=== PATIENT | male | born 1970 | race Caucasian/White ===

== ENCOUNTER 2020-06-08 07:33 | Outpatient (CLI) | payer OTHER ==
[2020-06-08] MEDS ORDERED: Fentanyl 100 MCG/2 ML VIAL ONE (08:19)
[2020-06-08] MEDS ORDERED: Naloxone HCl 0.4 mg/ml Vial ONE (08:20)
[2020-06-08] MEDS ORDERED: Sodium Bicarbonate 2.5 MEQ/5 ML VIAL ONE (08:20)
[2020-06-08] MEDS ORDERED: Lidocaine 1% PF 5 ML VIAL ONE (08:20)
[2020-06-08] MEDS ORDERED: Midazolam HCl 5 mg/5 ml Vial ONE (08:21)
[2020-06-08] MEDS ORDERED: FLU VACC QS2020-21(6MOS UP)/PF 60 MCG/0.5 ML SYRINGE IM ONE (08:45)
[2020-06-08 10:42] VITALS: BP 116/72; TEMP 97.4; BMI 29.5
== END 2020-06-08 10:56 | disposition home or self-care (01) ==
LOC: CSHULT 07:33
PROVIDERS: ATTEND Physician Assistant Medical
DX: R94.5 Abnormal results of liver function studies (principal); R77.8 Other specified abnormalities of plasma proteins; K75.81 Nonalcoholic steatohepatitis (NASH); E83.19 Other disorders of iron metabolism
CPT/HCPCS: 47000; 88307; 88313; 88321; J2250; J2310; J3010